=== PATIENT | male | born 1995 | race Caucasian/White ===

== ENCOUNTER 2019-07-07 10:54 | Emergency (ER) | payer MEDICAID ==
[~2019-07-07] VITALS: Ht 180.3 cm; Wt 71.4 kg
[2019-07-07 11:02] VITALS: BP 148/70
--- NOTE | 2019-07-07 11:52 | NUR ---
TASK RN: Patient/Caregiver given discharge instructions and they have confirmed that they understand the instructions. Patient ambulatory with steady gait. NEW PAIR OF SOCKS PROVIDED
== END 2019-07-07 11:53 | disposition home or self-care (01) ==
LOC: ED 11:31
DX: L03.031 Cellulitis of right toe (principal); B35.3 Tinea pedis
CPT/HCPCS: 99282